=== PATIENT | female | born 1980 | race Caucasian/White ===

== ENCOUNTER 2025-06-28 15:30 | Outpatient (AMB) | payer MEDICAID, SELFPAY ==
--- OUTSIDE RECORDS SUMMARY | 2025-06-28 15:32 | XMS_ITS | Clinical Summary ---
Author Organization [address] [place] [address] Address [address] [place] [address] Phone Care Team Providers Care Filter Tank Operator Name Role Phone Brianna Bledsoe Primary Care Provider [phone] Allergies No known active allergies Medications DULoxetine (CYMBALTA) [address] capsule Take 30 mg by mouth daily. Active Immunizations Name Administration Dates Next Due Pfizer SARS-CoV-2 COVID-19, mRNA, LNP-S, preservative free 10/07/2021,03/02/2021,02/09/2021 Surgical History Surgery Date Site/Laterality Comments OTHER SURGICAL HISTORY 2005 PROCEDURE: NE DILATION & CURETTAGE DX&/THER NONOBSTETRIC; COMMENT: after SAB with prolonged vaginal bleeding Medical History Medical History Date Comments AMA (advanced maternal age) multigravida 35+ 11/21/2017 DX:AMA (advanced maternal ag e) multigravida 35+ Social History Tobacco Use Types Packs/Day Years Used Date Smoking Tobacco: Never Smokeless Tobacco: Never Alcohol Use Standard Drinks/Week Comments No 0 (1 standard drink = 0.6 oz pur e alcohol) Comments Unknown Sex and Gender Information Value Date Recorded Sex Assigned at Not on file Legal Sex Female 5:28 PM EST Gender Identity Not on file Sexual Orientation Not on file Obstetrics History Last Filed Vital Signs Vital Sign Reading Time Taken Comments Blood Pressure 124/80 04/13/2022 9:45 AM EDT Sit ting L Arm Pulse 70 04/13/2022 9:45 AM EDT Temperature - - Respiratory Rate - - Oxygen Saturation - - Inhaled Oxygen Concentration - - Weight 75.8 kg (167 lb) 04/13/2022 9:45 AM EDT Height 154.9 cm (5' 1 ) 04/13/2022 9:45 AM EDT Body Mass Index 31.55 04/13/2022 9:45 AM EDT Plan of Treatment Health Maintenance Due Date Last Done Comments Breast Cancer Screening 1979 DTaP,Tdap,and Td Vaccines (1 - Tdap) 1998 Hepatitis B Vaccines (1 of 3 - 19+ 3-dose series) 1998 Cervical Cancer Screening: P ap Smear 12/02/2020 12/02/2017, 12/02/2017 Colorectal Cancer Screening: Colonoscopy 10/02/2022 Social Influencers of Health Screening 10/02/2022 COVID-19 Vaccine (2023-2 5 season) 2024 10/07/2021, 03/02/2021, 02/09/2021 Depression Screening 10/31/2024 Influenza Vaccine (#1) 2025 Cholesterol Screening (Lipid Panel) 10/01/2026 10/01/2021 HIV Screening Completed 01/06/2022 Hepatitis C Screening Completed 01/06/2022 HIB Vaccines Aged Out No longer eligi ble based on patient's age to complete this topic HPV Vaccines Aged Out No longer eligi ble based on patient's age to complete this topic Hepatitis A Vaccines Aged Out No long er eligible based on patient's age to complete this topic IPV Vaccines Aged Out No longer eligi ble based on patient's age to complete this topic MMR Vaccines Aged Out No longer eligi ble based on patient's age to complete this topic Meningococcal ACWY Vaccine Aged Out N o longer eligible based on patient's age to complete this topic Meningococcal B Vaccine Aged Out No l onger eligible based on patient's age to complete this topic Pneumococcal Vaccine: Pediatrics (0 to 5 Years) and At-Risk Patients (6 to 49 Years) Aged Out No longer eligible b ased on patient's age to complete this topic RSV Immunization Patients Under 20 months Aged Out No longer eligible b ased on patient's age to complete this topic Varicella Vaccines Aged Out No longer eligible based on patient's age to complete this topic Procedures Procedure Name Priority Date/Time Associated Diagnosis Comments HEPATITIS C SCREENING Routine 01/06/2022 HIV SCREENING Routine 01/06/2022 LIPID PANEL Routine 10/01/2021 HPV Routine 12/02/2017 from Last 3 Months or Most Recently Relevant to Health Maintenance Results * HIV Screening (01/06/2022) Pathologist [facility] HIV Screening Abstracted [facility] Provider HEALTH MAINTENANCE Final Result * Hepatitis C Screening (01/06/2022) Pathologist [facility] Hepatitis C Screening Abstracted [facility] Provider HEALTH MAINTENANCE Final Result * Lipid panel (10/01/2021) [facility] LDL/HDL Ratio 0 Comment:No Interpretation, A bstracted Triglycerides 0 mg/dL Comment:No Interpretation, A bstracted Cholesterol 0 mg/dL Comment:No Interpretation, A bstracted HDL 0 mg/dL Comment:No Interpretation, A bstracted LDL Cholesterol 0 mg/dL Comment:No Interpretation, A bstracted Blood Venous blood specimen / Unknown [facility] Provider LAB BLOOD ORDERABLES Raeann l Result * Cervical Cancer Screening: HPV (12/02/2017) [facility] Cervical Cancer Screening: HPV Negative, Abstracted [facility] Provider HEALTH MAINTENANCE Final Result from Last 3 Months or Most Recently Relevant to Health Maintenance Insurance [employer] Care Teams Filter Tank Operator Relationship Specialty Start Date End Date Brianna Bledsoe PCP - General 08/29/24
--- OUTSIDE RECORDS SUMMARY | 2025-06-28 15:32 | XMS_ITS | Clinical Summary ---
Author Organization [facility] Address [address] [place] [address] Care Team Providers Care Electrical Instrument Repairer Name Role Phone Viridiana Roman PA-C Primary Care Provider [phone] Source Comments PLEASE NOTE, if this patient is a minor, it may be UNLAWFUL to discuss sensitive information that is contained in these records (such as FAMILY PLANNING, MENTAL HEALTH or SUBSTANCE ABUSE) with the minor patient's parent or other person without the patient's specific authorization.[facility] Allergies No known active allergies Medications magnesium oxide (MAG-OX) 400 mg (241.3 mg magnesium) tabletIndicatio ns:Numbness and tingling of left upper and lower extremity Take 1 Tablet by mouth once daily 60 Tablet 2 Active tacrolimus (PROTOPIC) 0.1 % ointment APLIQUE AL CHANTE AFECTADA DOS VECES AL D A CUANDO SEA NECESARIO 4 Active cetirizine (ZYRTEC) 10 mg tablet 4 Active amitriptyline (ELAVIL) 10 mg tablet TOME 1 TABLETA POR VIA ORAL TODOS LOS PADRON AL ACOSTARSE 90 Tablet 5 Active DULoxetine (CYMBALTA) [address] capsuleIndicati ons:Fibromyalgi a Take 1 Capsule by mouth once daily. 90 Capsule 5 Active hydrocortisone 2.5 % cream Apply topically 2 (two) times daily APPLY TO FACIAL RASH!!. 28 g 2 5 Active hydrocortisone 2.5 % cream APPLY TO FACIAL RASH TWICE A DAY, NEEDED 06/03/20 Discontinu ed(Reorder (E-Cancel Not Sent)) Active Problems Problem Noted Date Diagnosed Date Prediabetes 06/22/2024 Levoscoliosis of lumbar spine 11/24/2021 Assessment & Plan (11/24/2021 9:44 AM EST): Claudia 11/18/2021 IMPRESSION: Reversal of the cervical lordosis consistent with muscle spasm. Degenerative disc disease is present at the C4-5, C5-6, and C6-7 levels. There is mild bony narrowing of the left C6-7 neural foramen. IMPRESSION: 14 degree levoscoliosis with the apex at the T12-L1 level. Otherwise, normal examination. DDD (degenerative disc disease), cervical 2021 Esophageal dysmotility 11/24/2021 Assessment & Plan (11/24/2021 9:49 AM EST): Report: CR Barium Swallow HISTORY: The patient is a 41-year-old female with dysphasia. FINDINGS: Oim Architect PA radiograph of the chest demonstrates mild levoscoliosis of the upper thoracic spine and mild dextroscoliosis of the mid to lower thoracic spine. The cardiac and mediastinal contours are within normal limits. The lungs and costophrenic angles are clear. Oim Architect lateral radiograph of the neck demonstrates no prevertebral soft tissue swelling. The epiglottis and aryepiglottic folds are of normal appearance. No soft tissue mass is seen. The included portion of the airway is widely patent. There are mild degenerative changes of the cervical spine. Effervescent crystals were administered orally. Thick and thin barium was then administered orally under fluoroscopic control. There is mild esophageal dysmotility as evidenced by decreased efficacy of the primary peristaltic stripping wave and slow transit of barium down the esophagus. There is no ulcer, stricture, or filling defect. The mucosal pattern is normal. There is no hiatal hernia and no gastroesophageal reflux could be elicited. There is no radiographic evidence of esophagitis. Rapid sequence imaging of the hypopharynx during swallowing demonstrates prompt initiation of swallowing. There is normal soft palate elevation and normal epiglottic motion. There is no laryngeal penetration or maribell aspiration. There is no residual in the vallecula nor in the piriform sinuses. A 13 mm barium tablet was readily swallowed and passed rapidly down the esophagus into the stomach. IMPRESSION: Mild esophageal dysmotility. Otherwise, normal examination. Pending referral with GI Epigastric abdominal pain 01/05/2021 Overview (01/05/2021): 12/20/20 Admitted to [facility] for chest pain/epigastric pain with ? Of gallstone pacreatitis. Gestational diabetes mellitu s (GDM) in second trimester controlled on oral hypoglycemic drug ([facility]) 01/11/2020 Chest pain 09/18/2019 Overview (06/21/2024): Treadmill stress test 09/05/19 normal Threatened miscarriage in early ([facility]H [facility]) 12/01/2017 Overview (12/01/2017): 11/28/17 [facility] ED vaginal bleeding in 2 months , preg U/S shows live intrauterine growth. Dx: threatened miscarriage Encounters Date Type Department Care Team Description 06/07/2025 11:20 AM EDT Office Visit [facility] [address] [place] [phone] Maycol Singleton MD Rodriguez, Anabel 05/29/2025 4:20 PM EDT Office Visit [facility] [address] [place] [phone] Darryl Foreman, BUSINESS OFFICE ASSOCIATE-Nat [place]ct[place] from Last 3 Months Immunizations Immunization Administration Dates Next Due Flu, Preservative Free 10/07/2021 Hep B, Adult/Adol ([id number]-T-[id number]/RECOMBIVAX-ADULT) 06/21/2024(Deferred: Different Brand Given) Hep B,adult,adjuvanted (HEPLISAV) 06/21/2024 INFLUENZA, SEASONAL, INJECTABLE 10/04/2019 PFIZER COVID VACCINE, PURPLE CAP, 12+ 10/07/2021 ,03/02/2021,02/09/2021 PNEUMOCOCCAL CONJUGATE PCV 2 0 (Prevnar 20) 06/21/2024 TDAP 02/28/2020 Family History Medical History Relation Name Comments High Cholesterol Father Hypertension Father High Cholesterol Mother Hypertension Mother Relation Name Status Comments Father Alive Mother Alive Social History Tobacco Use Types Packs/Day Years Used Date Smoking Tobacco: Never Passive Smoke Exposure: Never Smokeless Tobacco: Never Tobacco Cessation:Counseling Given: Not Answered Alcohol Use Standard Drinks/Week Comments No 0 (1 standard drink = 0.6 oz pur e alcohol) Social Connections Answer Date Recorded How often do you feel lonely or isolated from th ose around you? 1 06/07/2025 Financial Resource Strain Answer Date R ecorded Hard to pay for: Food 1 06/07/2025 Stress Answer Date Recorded Do you feel these kinds of stress these days? 1 06/07/2025 Physical Activity Answer Date Recorded Physical Activity 0 06/25/2019 Food Insecurity Answer Date Recorded Hard to pay for: Food 1 06/07/2025 Transportation Needs Answer Date Record ed Hard to pay for: Transportation 1 06/07/2025 Housing Stability Answer Date Recorded Hard to pay for: Rent/Mortgage payment 1 06/07/2025 Safety and Environment Answer Date Luke rded How often does anyone, inclu ding family and friends, physically hurt you? 1 06/07/2025 Utilities Answer Date Recorded Hard to pay for: Utilities 1 06/07 Employment Answer Date Recorded Stress 0 01/18/2022 Comments No Sex and Gender Information Value Date Recorded Sex Assigned at Female 01/11/2018 11:40 AM PDT Legal Sex Female 7:51 AM PST Gender Identity Female 01/11/2018 11:40 AM PDT Sexual Orientation Straight 01/18/2018 8: 31 AM PDT Occupation Industry Job Start Date Job End Date unemployed Not on file Not on file Not on file Last Filed Vital Signs Vital Sign Reading Time Taken Comments Blood Pressure 108/73 06/07/2025 11:48 AM EDT Pulse 88 06/07/2025 11:48 AM EDT Temperature 36.8 C (98.3 F) 06/07/2025 11:48 AM EDT Respiratory Rate 16 06/07/2025 11:4 8 AM EDT Oxygen Saturation 100% 06/07/2025 11: 48 AM EDT Inhaled Oxygen Concentration - - Weight 60.2 kg (132 lb 12.8 oz) 025 11:48 AM EDT Height 152.4 cm (5') 06/07/2025 11:48 AM EDT Body Mass Index 25.94 06/07/2025 11:48 AM EDT Plan of Treatment Health Maintenance Due Date Last Done Comments Dental Perio Charting 1979 Breast Cancer Screening (Mammogram) 11/30/2023 11/30/2022 [id number] ( season) 2024 10/07/2021, 03/02/2021, 02/09/2021 Imm-Hepatitis B (2 of 2 - Cp G 2-dose series) 07/19/2024 06/21/2024 CT Colonography 2024 Colonoscopy 2024 Colorectal Cancer Screening 2024 FIT/gFOBT 2024 Fecal DNA 2024 Flexible Sigmoidoscopy 2024 HPV Screening 11/02/2024 11/02/2019 Annual Wellness (Adult): Indicated (All Coverage) 06/21/2025 06/21/2024, 01/06/2022 Diabetes Screening 06/21/2025 06/21/2024, 0 06/21/2024, 01/26/2023, Additional history exists Tobacco Screening 06/21/2025 05/29/2025 Imm-Influenza (#1) 2025 10/07/2021, 10/04/2019 Dental BW 08/30/2025 08/28/2024 Dental Examination 08/30/2025 08/28/2024 Dental Prophy 08/30/2025 08/28/2024 Anxiety Screening 06/07/2026 06/07/2025 Hypertension Screening (#1) 06/07/2026 Relationship Safety Screening/Counseling 06/07/2026 06/07/2025, 10/28/2023, 03/22/2022, Additional history exists Pap Smear 06/07/2028 06/07/2025, 11/02/2019 Lipid Screening 06/21/2029 06/21/2024, 12/30, 10/01/2021, Additional history exists Dental FMX/Pano 08/30/2029 08/28/2024 Imm-DTaP/Tdap/Td (2 - Td or Tdap) 02/27/2030 020 Cervical Cancer Screening 06/07/2030 Pap + HPV 06/07/2030 06/07/2025, 11/02/2019 Hepatitis C Screening Completed 01/06/2022 HIV Screening Completed 01/18/2024, 0307/2022, 01/06/2022 Alcohol and Drug Screen Completed 06/07/20, 06/21/2024, 01/26/2023, Additional history exists Depression Annual Screen Completed 06/07/2025, 12/30 Cervical Ablation/Cold-Knife Conization Discontinued Cervical Cryotherapy Discontinued Colposcopy Discontinued Endometrial Biopsy Discontinued Excision/Leep Discontinued HPV Genotyping Discontinued Vaginal Pap Discontinued Vulvoscopy Discontinued Procedures Procedure Name Priority Date/Time Associated Diagnosis Comments THINPREP IMAGING PAP, HPV MRNA E6/E7 RFLEX HPV 16,18/45 CT/NG Routine 06/07/2025 8:28 AM EDT Screening for HPV (human papillomavirus) INTRAORAL - COMP SERIES OF RADIOGRAPHIC IMAGES Routine 08/28/2024 11:00 AM EDT Encounter for dental examination Defective dental latter day PROPHYLAXIS - ADULT Routine 08/28/2024 1 1:00 AM EDT Encounter for dental examination COMP ORAL EVALUATION - NEW/ESTABLISHED PATIENT Routine 08/28/2024 11:00 AM EDT Encounter for dental examination HEMOGLOBIN GLYCOSYLATED A1C Routine 06/21/2024 10:20 AM EDT Routine general medical examination at a health care facility LIPID PANEL Routine 06/21/2024 10:20 AM EDT Routine general medical examination at a health care facility HIV 1/2 AG & AB W/RFLX (4TH GEN) Routine 01/18/2024 4:53 PM EDT Possible exposure to STD HISTORIC MAMMOGRAM 11/30/2022 3: 00 AM EST HEPATITIS C AB W/RFLX HCV RNA, QT, RT PCR Routine 01/06/2022 11:04 AM EST Need for hepatitis C screening test PAP SMEAR W/HPV, ABSTRACTED Routine 11/02/2019 9:00 AM EST from Last 3 Months or Most Recently Relevant to Health Maintenance Results * THINPREP IMAGING PAP, HPV MRNA E6/E7 RFLEX HPV 16,18/45 CT/NG Cervical Swab Routine (06/07/2025 8:28 AM EDT) CLINICAL INFORMATION None given 5 9:38 AM EDT [facility] LMP NONE GIVEN 5 9:38 AM [facility] PREV. PAP NONE GIVEN 5 9:38 AM EDT [facility] PREV. BX NONE GIVEN 5 9:38 AM EDT [facility] SOURCE Cervix 9:38 AM [facility] STATEMENT OF ADEQUACY Satisfactory for evaluation. Endocervical/tra nsformation zone component present. 9:38 AM [facility] INTERPRETATION/RES ULT Cytology Results: Negative for intraepithelial lesion or malignancy. 9:38 AM Resource Interactive [facility] COMMENT This Pap test has been evaluated with the ThinPrep(R) Imaging System. 9:38 AM [facility] INDUSTRIAL TRUCK OPERATOR AIDEN WISE(ASCP) CT screening location: [address] [address] 5 9:38 AM [facility] HPV MRNA E6/E7 Not Detected Not Detected 9:38 AM [facility] CHLAMYDIA TRACHOMATIS RNA, TMA NOT DETECTED NOT DETECTED 5 9:34 PM [facility] NEISSERIA GONORRHOEAE RNA, TMA NOT DETECTED NOT DETECTED 5 9:34 PM Resource Interactive [facility] Swab Cervix uteri structure / Unknown 06/07/2025 8:28 AM EDT 06/10/2025 10:39 AM EDT Narrative [employer] [facility] - 06/11/2025 9:42 AM EDT Methodology: Dining Room Hostess-Mediated Amplification . This assay detects E6/E7 viral messenger RNA (mRNA) from 14 high-risk HPV types (16,18,31,33,35,39,45,51,52,56,58,59,66,68). . . Cervical sources are required for HPV testing. If a vaginal source from a patient who has had a total hysterectomy with removal of cervix was submitted, please contact the testing laboratory for alternative testing options. . For additional information, please refer to http://Veodia.Modusly/faq/TQO939j9 (This link if provided for information/ educational purposes only.) EXPLANATORY NOTE: . The Pap is a screening test for cervical cancer. It is not a diagnostic test and is subject to false negative and false positive results. It is most reliable when a satisfactory sample, regularly obtained, is submitted with relevant clinical findings and history, and when the Pap result is evaluated along with historic and current clinical information. . The analytical performance characteristics of this assay, when used to test SurePath(TM) specimens have been determined by [employer]. The modifications have not been cleared or approved by the FDA. This assay has been validated pursuant to the CLIA regulations and is used for clinical purposes. . For additional information, please refer to https://Veodia.Modusly/faq/TIP310 (This link is being provided for information/ educational purposes only.) . Maycol Singleton MD LAB - PATHOLOGY AND CYTOLOGY AM BULATORY Final Result [facility] [address] [place] [id number], [facility] [address] [place] [phone] * (ABNORMAL) HEMOGLOBIN GLYCOSYLATED A1C (06/21/2024 10:20 AM EDT) HEMOGLOBIN A1C 5.7(H) <5.7 % of total Hgb [facility] Comment: For someone without known diabetes, a hemoglobin A1c value between 5.7% and 6.4% is consistent with prediabetes and should be confirmed with a follow-up test. For someone with known diabetes, a value <7% indicates that their diabetes is well controlled. A1c targets should be individualized based on duration of diabetes, age, comorbid conditions, and other considerations. This assay result is consistent with an increased risk of diabetes. Currently, no consensus exists regarding use of hemoglobin A1c for diagnosis of diabetes for children. Blood Blood / Unknown 06/21/2024 1 0:20 AM EDT 06/21/2024 10:21 AM EDT Narrative [facility] - 06/22/2024 3:45 AM EDT FASTING:YES us Brianna Bledsoe NP LAB - BLOOD DRAW Edited Resu lt - Final Performing Organization Address [facility] Co de Phone Number [facility] [address] [address], [facility] [address] [phone] * (ABNORMAL) LIPID PANEL (06/21/2024 10:20 AM EDT) [facility] CHOLESTEROL, TOTAL 255(H) <200 mg/dL [facility] HDL CHOLESTEROL 62 > OR = 50 mg/dL [facility] TRIGLYCERIDES 81 <150 mg/dL [facility] LDL-CHOLESTEROL 174(H) 99 mg/dL (calc) [facility] Comment: Reference range: <100 Desirable range <100 mg/dL for primary prevention; <70 mg/dL for patients with CHD or diabetic patients with > or = 2 CHD risk factors. LDL-C is now calculated using the Presley-Alexx calculation, which is a validated novel method providing better accuracy than the Friedewald equation in the estimation of LDL-C. Presley SS et al. TATYANA. 2013;310(19): 5149-8052 (http://education.[employer]/faq/SON749) CHOL/HDLC RATIO 4.1 <5.0 (calc) [facility] NON-HDL CHOLESTEROL 193(H) <130 mg/dL (calc) [facility] Comment: For patients with diabetes plus 1 major ASCVD risk factor, treating to a non-HDL-C goal of <100 mg/dL (LDL-C of <70 mg/dL) is considered a therapeutic option. Blood Blood / Unknown 06/21/2024 1 0:20 AM EDT 06/21/2024 10:21 AM EDT Narrative [facility] - 06/22/2024 3:45 AM EDT FASTING:YES us Brianna Bledsoe NP LAB - BLOOD DRAW Final Resul t Performing Organization Address [facility] Co de Phone Number [facility] [address] [address], [facility] [address] [phone] * HIV 1/2 AG & AB W/RFLX (4TH GEN) (01/18/2024 4:53 PM EDT) HIV AG/AB, 4TH GEN NON-REAC TIVE NON-REAC TIVE [facility] Comment: HIV-1 antigen and HIV-1/HIV-2 antibodies were not detected. There is no laboratory evidence of HIV infection. PLEASE NOTE: This information has been disclosed to you from records whose confidentiality may be protected by state law. If your state requires such protection, then the state law prohibits you from making any further disclosure of the information without the specific written consent of the person to whom it pertains, or as otherwise permitted by law. A general authorization for the release of medical or other information is NOT sufficient for this purpose. For additional information please refer to http://education.Modusly/faq/ZCA808 (This link is being provided for informational/ educational purposes only.) The performance of this assay has not been clinically validated in patients less than 2 years old. Blood Blood / Unknown 01/18/2024 4 :53 PM EDT 01/18/2024 4:54 PM EDT Elly Musa [facility]- LAB - BLOOD DRAW Edited R esult - Final Performing Organization Address [facility]/ZIP Co de Phone Number [facility] [address] [address], [facility] [address] [phone] * HISTORIC MAMMOGRAM (11/30/2022 3:00 AM EST) 11/30/2022 3:00 AM EST Viridiana Roman PA-C IMG MAMMO Edited Resul t - Final * HEPATITIS C AB W/RFLX HCV RNA, QT, RT PCR (01/06/2022 11:04 AM EST) HEPATITIS C ANTIBODY NON-REACT SAV NON-REACT SAV [facility] SIGNAL TO CUT-OFF 0.02 <1.00 [facility] Comment: HCV antibody was non-reactive. There is no laboratory evidence of HCV infection. In most cases, no further action is required. However, if recent HCV exposure is suspected, a test for HCV RNA (test code 87990) is suggested. For additional information please refer to http://education.Modusly/faq/QWI55m4 (This link is being provided for informational/ educational purposes only.) Blood Blood / Unknown 01/06/2022 1 1:04 AM EST 01/06/2022 11:04 AM EST Keyla Otero BUSINESS OFFICE ASSOCIATE LAB - BLOOD DRAW Final Re sult [facility] [address] [address], [facility] [address] [address] * PAP SMEAR W/HPV (11/02/2019 9:00 AM EST) PAP SMEAR INTERPRETATION NORMAL NORMAL [facility] HPV (HUMAN PAPILLOMA) NEGATIVE NEGATIVE [facility] HPV TYPE 16 NEGATIVE NEGATIVE [facility] HPV TYPE 18 NEGATIVE NEGATIVE [facility] Specimen from uterine cervix (specimen) 11/02/2019 9:00 AM EST Impressions [facility] - 11/02/2019 3:07 PM EST NEGATIVE for Intraepithelial Lesion or Malignancy. Human Papilloma Virus, High-Risk- NEGATIVE. Adequacy:Satisfactory.Endocervical/transformation zone component absent. Chlamydia- negative N.gonorrhea - negative. [facility] LAB - PATHOLOGY AND CYTO LOGY AMBULATORY Final Result [facility] [address] [place] [address], from Last 3 Months or Most Recently Relevant to Health Maintenance Insurance [place] Member Subscriber Plan / Payer (Ef fective 2023-Present) Name:Maritza Acharya Relation to Subscriber:Self Name:Maritza Acharya Payer ID:[id number] Group ID:Not on file Type:Medicaid Address: [facility] [id number] [place] [id number] [facility] Care Teams Electrical Instrument Repairer Relationship Specialty Start Date End Date Viridiana Roman PA-C [address] [place] [address] PCP - General Internal Medicine 10/02/24
--- OUTSIDE RECORDS SUMMARY | 2025-06-28 15:32 | XMS_ITS | Clinical Summary ---
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 Name Role Phone Unavailable Primary Care Provider Unavailabl e Encounters Date Type Department Care Team Description 05/21/2025 Population Health Risk Score [facility] ([facility]) Department [address] [facility] [address] [place] [address] Provider, Population Health Generic from Last 3 Months Social History Tobacco Use Types Packs/Day Years Used Date Smoking Tobacco: Never Assessed Comments Unknown Sex and Gender Information Value Date Recorded Sex Assigned at Not on file Legal Sex Female 9:24 PM EDT Gender Identity Not on file Sexual Orientation Not on file Plan of Treatment Health Maintenance Due Date Last Done Comments CT Colonography 1979 Colonoscopy 1979 Colorectal Cancer Screening 1979 Depression Screening 1979 FIT DNA/Cologuard 1979 FIT 1979 FOBT 1979 SDOH Screening 1979 Sigmoidoscopy 1979 Disability Screening 1979 Alcohol/Substance Use Screening 1991 Tobacco Screening 1991 Family Planning (PISQ) 1994 HPV Vaccines (1 - 3-dose series) 1994 Hepatitis C Screening 1997 Pap Smear 2000 Cervical Cancer Screening 2009 HPV/Cotest 2009 Mammogram 2019 COVID-19 Vaccine (4 - 2023-2 5 season) 2024 10/07/2021, 03/02/2021, 02/09/2021 Hepatitis B Vaccines (2 of 2 - CpG 2-dose series) 07/19/2024 06/21/2024 Influenza Vaccine (#1) 2025 , 10/04/2019 Zoster Vaccines (1 of 2) 2029 DTaP/Tdap/Td Vaccines (2 - T d or Tdap) 02/27/2030 02/28/2020 RSV Patients and Patients Aged 60 years or older (1 - 1-dose 75+ series) 2054 HIV Screening Completed 01/18/2024, 01/18/2024, 01/06/2022 Pneumococcal Vaccine: Pediatrics (0 to 5 Years) and At-Risk Patients (6 to 49) Years Aged Out 06/21/2024 No longer eligible b ased on patient's age to complete this topic HIB Vaccines Aged Out No longer eligi [...] patient's age to complete this topic Meningococcal Vaccine Aged Out No lolis ana eligible based on patient's age to complete this topic RSV under 20 months Aged Out No longe r eligible based on patient's age to complete this topic Rotavirus Vaccines Aged Out No longer eligible based on patient's age to complete this topic
--- NOTE | 2025-06-28 15:38 | MHC.OFFVIS ---
Vital Signs 06/28/25 15:39 Height 5 ft 1 in Weight 136 lb BMI 25.7 BP 125/76 Blood Pressure Location Lt brachial Position Sitting Respiration 16 Pulse 85 Pulse Source Pulse Oximeter Pulse Oximetry (%) 100 Oxygen Delivery Method Room Air Intake Visit Reasons: Fibromyalgia Allergies No Known Allergies Allergy (Verified 06/28/25 15:39) HPI Comments Details: The patient is a 44-year-old female presenting with chronic pain management. The patient reports experiencing numbness in her feet, which she describes as feeling numb all the time. She has had this sensation for approximately five months. The patient was diagnosed with fibromyalgia two years ago, which has been associated with widespread body pain. She notes that the pain is worse at night, although no specific activities exacerbate it. Walking provides some relief, but she has not found any medication that alleviates the pain. The patient has tried walking and stretching exercises as part of her management strategy. She has not been on any consistent medication regimen for her fibromyalgia, although she has been prescribed Cymbalta, which she takes sporadically. She reports that Cymbalta has not been effective, possibly due to inconsistent use. Last reported Cymbalta use was 3 weeks ago. - Onset: Numbness in feet for approximately five months - Quality: Numbness described as constant. Diffuse body aches - Timing: Pain is worse at night - Relieving factors: Walking provides some relief - Aggravating factors: No specific activities exacerbate the pain - Affect: Pain impacts daily activities, especially at night - Analgesia: No effective medication regimen currently; Cymbalta used sporadically without benefit - Adverse Effects: None reported from current medications - Activities of Daily Living: Pain affects nighttime activities - Aberrant Drug Related Behaviors: None reported Review of Systems Const Details: - Neurological: Reports constant numbness in feet for five months - Musculoskeletal: Reports widespread body pain associated with fibromyalgia Physical Exam Exam Exam: General: awake, alert, oriented. Answers questions appropriately. Fully engaged in examination. Skin: warm, dry, intact HEENT: Normocephalic. Hearing intact. Cardiac: External chest normal in appearance. Respiratory: No cough, audible wheezing or stridor. Abdomen: without gross distension. MS: No obvious swelling or deformities. Neurological: Oriented to person, place, time and situation. Thought process intact. No gait abnormalities appreciated. Psychiatric: Appropriate mood and affect. Good judgment and insight. Vital Signs: Last Vital Signs Pulse 85 06/28/25 15:39 Resp 16 06/28/25 15:39 BP 125/76 06/28/25 15:39 Pulse Ox 100 06/28/25 15:39 Oxygen Delivery Method Room Air 06/28/25 15:39 BMI result Body Mass Index 25.7 Assessment & Plan Assessment & Plan (1) Fibromyalgia: Code(s): M79.7 - Fibromyalgia Category: Medical (2) Chronic pain syndrome: Code(s): G89.4 - Chronic pain syndrome Category: Medical Plan The patient will be started on Savella, an FDA-approved medication for fibromyalgia, to be taken daily. She is advised to discontinue Cymbalta, as it has not been effective and is not compatible with Savella. The patient is encouraged to continue with walking and stretching exercises and to consider aqua therapy as a beneficial adjunct for fibromyalgia management. A follow-up appointment is scheduled in six weeks to assess the effectiveness of the new medication regimen and make any necessary adjustments. Patient was informed and verbally consented to the use of an ambient scribe for clinic note documentation during this visit. Medications: New milnacipran (Savella) Take 1 tab daily, may increase to 1 tablet twice daily 12.5 mg PO DAILY 30 tabs 2RF Patient Instructions: - Start taking Savella daily as prescribed. - Discontinue Cymbalta and inform the prescribing physician. - Continue walking and stretching exercises. - Consider finding a gym with a pool for aqua therapy. - Follow up in six weeks for reassessment. Coding Level of Care Code New Pt Level 4 (61579) Complex EM visit Add On G2211 Diagnoses Fibromyalgia M79.7 Chronic pain syndrome G89.4
[2025-06-28 15:39] VITALS: BP 125/76; PULSE 85; RESP 16; O2SAT 100; BMI 25.7
== END 2025-06-28 16:13 | disposition home or self-care (01) ==
PROVIDERS: PCP Physician Assistant; Referring Provider Physician Assistant; Visit Provider Registered Nurse Emergency
DX: M79.7 Fibromyalgia (principal); G89.4 Chronic pain syndrome
CPT/HCPCS: 99204

== ENCOUNTER → 2025-06-28 15:30 | Outpatient (BNVA) | payer MEDICAID, SELFPAY | PROVIDERS: PCP Physician Assistant; Referring Provider Physician Assistant; Visit Provider Registered Nurse Emergency | DX: M79.7 Fibromyalgia (principal); G89.4 Chronic pain syndrome | CPT/HCPCS: 99212 ==